=== PATIENT | male | born 1995 | race Caucasian/White ===

== ENCOUNTER 2018-12-08 20:20 | Emergency (ER) | payer BC ==
[~2018-12-08 20:20] MED LIST: Iopamidol 370 76% 125 ML VIAL FS ONE; Sodium Chloride 0.9% 100 ML BAG ONE
[2018-12-08 21:04] LABS: #Eosinphils 0.1 thou/uL (0.0-0.7); #Lymphocytes 1.5 thou/uL (1.20-3.40); #Monocytes 0.6 thou/uL (0.11-0.59); %Basophils 0.6 % (0.0-1.0); %Lymphocytes 28.7 % (21.0-51.0); %Monocytes 10.7 % (0.0-10.0); Hemoglobin 14.5 g/dL (14.0-18.0); Mean Corpuscular HGB CONC 34.3 g/dL (32.0-36.0); Mean Corpuscular Hemoglobin 30.5 pg (27.0-31.0); Mean Corpuscular Volume 89.1 fL (78.0-98.0); Mean Platelet Volume 6.3 fL (7.4-10.4); Platelet Count 149 thou/uL (130-400); RBC Distribution Width 11.4 % (11.5-14.5); Red Blood Cell (RBC) Count 4.75 mill/uL (4.70-6.10); White Blood Cell (WBC) Count 5.1 thou/uL (4.8-10.8)
[2018-12-08 21:10] LABS: Anion Gap 17 mmol/L (10-20); BUN (Urea Nitrogen) 13 mg/dL (8.9-20.6); Calc. Creatinine Clearance 0 mL/min (70-130); Calcium 9.3 mg/dL (7.8-10.44); Carbon Dioxide 26 mmol/L (22-29); Chloride 99 mmol/L (98-107); Estimated GFR-MDRD 76; Glucose 89 mg/dL (70-105); Potassium 3.7 mmol/L (3.5-5.1); Sodium 138 mmol/L (136-145)
[2018-12-08] MEDS ORDERED: Sodium Chloride 0.9% 1,000 ML ONE (21:43)
[2018-12-08] MEDS ORDERED: Ibuprofen 600 MG TAB ONE (21:43)
--- NOTE | 2018-12-08 22:27 | CT ---
CT ANGIOGRAM THORAX WITH CONTRAST: (CTA pulmonary angiogram) DATE: 12/08/2018 HISTORY: 23-year-old male with chest pain TECHNIQUE: IV injection of iodinated contrast. Scan acquisition timing attempted to coincide with iodinated contrast bolus reaching maximal density in pulmonary arteries. 3-D MIP reconstructions. FINDINGS: There is severe breathing motion artifact such that it is not possible to evaluate for pulmonary thro mboembolism involving any of the proximal, mid, or distal branches of the bilateral main pulmonary arteries. There is no obvious thrombus in the pulmonic trunk or in the left and right main pulmonary arteries, with the exception of the distal portions of the main pulmonary arteries which are also obscured. No thoracic aortic aneurysm or dissection. No consolidation, pleural effusion, or pneumotho rax. No cardiomegaly or pericardial effusion. No mediastinal lymphadenopathy. IMPRESSION: 1. Very limited study, suboptimal study because of severe breathing motion artifact, such that we can not evaluate for pulmonary thromboembolism at any of the branches of the bilateral main pulmonary arteries. 2. No central pulmonary thromboembolism in the pulmonic trunk or bilateral main pulmonary arteries.
== END 2018-12-08 22:47 | disposition home or self-care (01) ==
LOC: MADERS 20:20
DX: R00.0 Tachycardia, unspecified (principal); R53.81 Other malaise; F17.220 Nicotine dependence, chewing tobacco, uncomplicated
CPT/HCPCS: 36415; 71275; 80048; 85025; 85379; 94760; 96360; J3490; J7050; Q9967

== ENCOUNTER 2020-12-28 18:31 | Emergency (ER) | payer BC, SELFPAY ==
[2020-12-29 15:28] LABS: SARS-CoV-2 PCR by NAA DETECTED (NotDetected)
== END 2020-12-28 21:50 | disposition home or self-care (01) ==
LOC: MADERS 18:31
DX: U07.1 COVID-19 (principal); F17.210 Nicotine dependence, cigarettes, uncomplicated
CPT/HCPCS: 99283; U0003; U0005